=== PATIENT | male | born 1970 | race Two or more races ===

== ENCOUNTER → 2019-11-25 | Outpatient (CLI) | payer OTHER | END | disposition home or self-care (01) | LOC: PUC 12:51 | DX: Z02.1 Encounter for pre-employment examination (principal) | CPT/HCPCS: 86706; 86735; 86762; 86765; 86787 ==

== ENCOUNTER → 2020-04-21 | Outpatient (CLI) | payer OTHER ==
[2020-04-21 12:35] LABS: BASOPHILS % (AUTO) 0.8 % (0.0-2.0); EOSINOPHILS % (AUTO) 2.6 % (1.0-6.0); HEMATOCRIT 44.9 % (41-53); HEMOGLOBIN 15.7 g/dL (13.5-17.5); LYMPHOCYTES # (AUTO) 2.5 K/uL (1.0-4.8); LYMPHOCYTES % (AUTO) 28.7 % (22.0-44.0); MEAN CORPUSCULAR HEMOGLOBIN 31.8 pg (26.0-34.0); MEAN CORPUSCULAR HGB CONC 35.1 G/dL (31.0-37.0); MEAN CORPUSCULAR VOLUME 91 fL (80-100); MONOCYTES # (AUTO) 0.6 K/uL (0.1-1.0); MONOCYTES % (AUTO) 6.7 % (2.0-9.0); NEUTROPHILS # (AUTO) 5.3 K/uL (1.8-7.7); NEUTROPHILS % (AUTO) 61.2 % (40.0-70.0); PLATELET COUNT (AUTO) 172 K/uL (150-450); RED BLOOD CELL COUNT(AUTO) 4.95 MIL/uL (4.50-5.90); RED CELL DISTRIBUTION WIDTH 13.6 % (11.5-14.5)
[2020-04-21 13:01] LABS: ALANINE AMINOTRANSFERASE 44 U/L (12-78); ALBUMIN 3.9 g/dL (3.4-5.0); ALKALINE PHOSPHATASE 60 U/L (46-116); ANION GAP 8 mmol/L (8-16); ASPARTATE AMINOTRANSFERASE 25 U/L (15-37); BILIRUBIN,TOTAL 0.7 mg/dL (0.1-1.0); CARBON DIOXIDE 27 mmol/L (22-29); CHLORIDE 105 mmol/L (98-107); CHOL/HDL RATIO 6.5 (4.2-7.3); CHOLESTEROL 260 mg/dL (131-200); CREATININE 1.19 mg/dL (0.60-1.30); GLOMERULAR FILTR. RATE CALC > 60 mL/min (>60); GLUCOSE,RANDOM 104 mg/dL (70-110); HDL CHOLESTEROL 40 mg/dL (40-60); LDL CHOL (CALC.) 180 mg/dL (0-130); POTASSIUM 4.2 mmol/L (3.5-5.1); SODIUM SERUM 140 mmol/L (136-145); THYROID STIMULATING HORMONE 0.58 uIU/mL (0.36-3.74); TOTAL PROTEIN, SERUM 7.4 g/dL (6.4-8.2); TRIGLYCERIDES 200 mg/dL (15-150); UREA NITROGEN, BLOOD 10 mg/dL (7-18)
[2020-04-21 13:19] LABS: PROSTATE SPECIFIC ANTIGEN 2.24 ng/mL (0.00-4.00)
[2020-04-21 13:44] LABS: HEMOGLOBIN A1C 5.5 % (3.8-5.6)
== END | disposition home or self-care (01) ==
LOC: LABPV 10:15
PROVIDERS: ATTEND Nurse Practitioner
DX: Z00.00 Encounter for general adult medical examination without abnormal findings (principal); E11.9 Type 2 diabetes mellitus without complications; R53.83 Other fatigue; R30.0 Dysuria
CPT/HCPCS: 82043; 82570; 83036; 84153; 84439; 84443; 84481

== ENCOUNTER → 2020-07-29 | Outpatient (CLI) | payer OTHER ==
[2020-07-29 09:03] LABS: BASOPHILS % (AUTO) 0.7 % (0.0-2.0); EOSINOPHILS % (AUTO) 2.5 % (1.0-6.0); HEMOGLOBIN 15.6 g/dL (13.5-17.5); LYMPHOCYTES # (AUTO) 2.1 K/uL (1.0-4.8); LYMPHOCYTES % (AUTO) 22.8 % (22.0-44.0); MEAN CORPUSCULAR HEMOGLOBIN 30.8 pg (26.0-34.0); MEAN CORPUSCULAR HGB CONC 33.2 G/dL (31.0-37.0); MEAN CORPUSCULAR VOLUME 93 fL (80-100); MONOCYTES # (AUTO) 0.6 K/uL (0.1-1.0); MONOCYTES % (AUTO) 6.8 % (2.0-9.0); NEUTROPHILS # (AUTO) 6.1 K/uL (1.8-7.7); NEUTROPHILS % (AUTO) 67.2 % (40.0-70.0); PLATELET COUNT (AUTO) 187 K/uL (150-450); RED BLOOD CELL COUNT(AUTO) 5.07 MIL/uL (4.50-5.90); RED CELL DISTRIBUTION WIDTH 13.3 % (11.5-14.5)
[2020-07-29 09:13] LABS: HEMOGLOBIN A1C 5.7 % (3.8-5.6)
[2020-07-29 09:32] LABS: ALANINE AMINOTRANSFERASE 40 U/L (12-78); ALBUMIN 3.8 g/dL (3.4-5.0); ALKALINE PHOSPHATASE 80 U/L (46-116); ANION GAP 8 mmol/L (8-16); ASPARTATE AMINOTRANSFERASE 20 U/L (15-37); BILIRUBIN,TOTAL 0.7 mg/dL (0.1-1.0); CALCIUM, TOTAL 8.9 mg/dL (8.8-10.5); CARBON DIOXIDE 29 mmol/L (22-29); CHLORIDE 107 mmol/L (98-107); CHOL/HDL RATIO 3.5 (4.2-7.3); CHOLESTEROL 146 mg/dL (131-200); CREATININE 1.07 mg/dL (0.60-1.30); GLOMERULAR FILTR. RATE CALC > 60 mL/min (>60); GLUCOSE,RANDOM 124 mg/dL (70-110); HDL CHOLESTEROL 42 mg/dL (40-60); LDL CHOL (CALC.) 78 mg/dL (0-130); POTASSIUM 4.1 mmol/L (3.5-5.1); SODIUM SERUM 144 mmol/L (136-145); TOTAL PROTEIN, SERUM 7.4 g/dL (6.4-8.2); TRIGLYCERIDES 131 mg/dL (15-150); UREA NITROGEN, BLOOD 13 mg/dL (7-18)
== END | disposition home or self-care (01) ==
LOC: LABPV 07:36
PROVIDERS: ATTEND Nurse Practitioner
DX: I10 Essential (primary) hypertension (principal); E11.69 Type 2 diabetes mellitus with other specified complication
CPT/HCPCS: 82043; 82570; 83036

== ENCOUNTER → 2021-01-25 | Outpatient (CLI) | payer OTHER ==
[2021-01-25 11:41] LABS: EOSINOPHILS % (AUTO) 4.1 % (1.0-6.0); HEMOGLOBIN 15.5 g/dL (13.5-17.5); LYMPHOCYTES # (AUTO) 2.1 K/uL (1.0-4.8); MEAN CORPUSCULAR HEMOGLOBIN 31.2 pg (26.0-34.0); MEAN CORPUSCULAR HGB CONC 33.6 G/dL (31.0-37.0); MEAN CORPUSCULAR VOLUME 93 fL (80-100); MONOCYTES # (AUTO) 0.6 K/uL (0.1-1.0); MONOCYTES % (AUTO) 8.3 % (2.0-9.0); NEUTROPHILS # (AUTO) 4.3 K/uL (1.8-7.7); NEUTROPHILS % (AUTO) 57.6 % (40.0-70.0); PLATELET COUNT (AUTO) 158 K/uL (150-450); RED BLOOD CELL COUNT(AUTO) 4.95 MIL/uL (4.50-5.90); RED CELL DISTRIBUTION WIDTH 13.8 % (11.5-14.5)
[2021-01-25 12:20] LABS: ALANINE AMINOTRANSFERASE 47 U/L (12-78); ALBUMIN 3.9 g/dL (3.4-5.0); ALKALINE PHOSPHATASE 76 U/L (46-116); ANION GAP 10 mmol/L (8-16); ASPARTATE AMINOTRANSFERASE 24 U/L (15-37); BILIRUBIN,TOTAL 0.6 mg/dL (0.1-1.0); CALCIUM, TOTAL 8.9 mg/dL (8.8-10.5); CARBON DIOXIDE 26 mmol/L (22-29); CHLORIDE 110 mmol/L (98-107); CHOL/HDL RATIO 3.6 (4.2-7.3); CHOLESTEROL 138 mg/dL (131-200); CREATININE 1.19 mg/dL (0.60-1.30); GLOMERULAR FILTR. RATE CALC > 60 mL/min (>60); GLUCOSE,RANDOM 129 mg/dL (70-110); HDL CHOLESTEROL 38 mg/dL (40-60); LDL CHOL (CALC.) 83 mg/dL (0-130); POTASSIUM 4.1 mmol/L (3.5-5.1); SODIUM SERUM 146 mmol/L (136-145); TOTAL PROTEIN, SERUM 7.2 g/dL (6.4-8.2); TRIGLYCERIDES 83 mg/dL (15-150); UREA NITROGEN, BLOOD 16 mg/dL (7-18)
== END | disposition home or self-care (01) ==
LOC: LABPV 07:39
PROVIDERS: ATTEND Nurse Practitioner
DX: I10 Essential (primary) hypertension (principal); E11.69 Type 2 diabetes mellitus with other specified complication
CPT/HCPCS: 80053; 80061; 82043; 82570; 83036; 85025

== ENCOUNTER → 2021-07-12 | Outpatient (CLI) | payer OTHER ==
[~2021-07-12] VITALS: Ht 182.9 cm; Wt 110.0 kg
[~2021-07-12] MED LIST: ATOR10TA84 PO; CETI-450 PO; FLUT16H NASAL; PNEUMOCOCCAL VACCINE POLYVALENT 0.5 ML VIAL [PPSV23] IM. ONE; TAMS-13 PO
[2021-07-12 10:44] VITALS: BP 135/87
== END | disposition home or self-care (01) ==
LOC: SRCNTR 10:18
PROVIDERS: ATTEND Internal Medicine
DX: Z23 Encounter for immunization (principal); E78.5 Hyperlipidemia, unspecified; R97.20 Elevated prostate specific antigen [PSA]; I10 Essential (primary) hypertension; E11.9 Type 2 diabetes mellitus without complications
CPT/HCPCS: 90471; 90732; G0463; 96372

== ENCOUNTER → 2021-07-13 | Outpatient (CLI) | payer OTHER ==
[~2021-07-13] MED LIST changes: -PNEUMOCOCCAL VACCINE POLYVALENT 0.5 ML VIAL [PPSV23] IM. ONE
[2021-07-13 12:12] LABS: BASOPHILS % (AUTO) 0.6 % (0.0-2.0); EOSINOPHILS % (AUTO) 1.9 % (1.0-6.0); HEMATOCRIT 46.8 % (41-53); HEMOGLOBIN 15.8 g/dL (13.5-17.5); LYMPHOCYTES # (AUTO) 2.3 K/uL (1.0-4.8); LYMPHOCYTES % (AUTO) 22.7 % (22.0-44.0); MEAN CORPUSCULAR HEMOGLOBIN 30.9 pg (26.0-34.0); MEAN CORPUSCULAR HGB CONC 33.8 G/dL (31.0-37.0); MEAN CORPUSCULAR VOLUME 91 fL (80-100); MONOCYTES # (AUTO) 0.7 K/uL (0.1-1.0); MONOCYTES % (AUTO) 7.3 % (2.0-9.0); NEUTROPHILS # (AUTO) 6.7 K/uL (1.8-7.7); NEUTROPHILS % (AUTO) 67.5 % (40.0-70.0); PLATELET COUNT (AUTO) 172 K/uL (150-450); RED BLOOD CELL COUNT(AUTO) 5.13 MIL/uL (4.50-5.90); RED CELL DISTRIBUTION WIDTH 13.7 % (11.5-14.5)
[2021-07-13 12:28] LABS: HEMOGLOBIN A1C 6.4 % (3.8-5.6)
[2021-07-13 12:37] LABS: ALANINE AMINOTRANSFERASE 36 U/L (12-78); ALBUMIN 3.8 g/dL (3.4-5.0); ALKALINE PHOSPHATASE 74 U/L (46-116); ANION GAP 10 mmol/L (8-16); ASPARTATE AMINOTRANSFERASE 18 U/L (15-37); BILIRUBIN,TOTAL 0.6 mg/dL (0.1-1.0); CARBON DIOXIDE 26 mmol/L (22-29); CHLORIDE 107 mmol/L (98-107); CHOL/HDL RATIO 5.8 (4.2-7.3); CHOLESTEROL 242 mg/dL (131-200); CREATININE 0.94 mg/dL (0.60-1.30); GLOMERULAR FILTR. RATE CALC > 60 mL/min (>60); GLUCOSE,RANDOM 119 mg/dL (70-110); HDL CHOLESTEROL 42 mg/dL (40-60); LDL CHOL (CALC.) 168 mg/dL (0-130); POTASSIUM 4.3 mmol/L (3.5-5.1); SODIUM SERUM 143 mmol/L (136-145); THYROID STIMULATING HORMONE 0.57 uIU/mL (0.36-3.74); TOTAL PROTEIN, SERUM 7.4 g/dL (6.4-8.2); TRIGLYCERIDES 162 mg/dL (15-150); UREA NITROGEN, BLOOD 13 mg/dL (7-18)
[2021-07-13 12:49] LABS: PROSTATE SPECIFIC ANTIGEN 1.56 ng/mL (0.00-4.00)
== END | disposition home or self-care (01) ==
LOC: LABPV 10:03
PROVIDERS: ATTEND Internal Medicine
DX: Z13.228 Encounter for screening for other metabolic disorders (principal); I10 Essential (primary) hypertension; E78.5 Hyperlipidemia, unspecified; E11.9 Type 2 diabetes mellitus without complications; E83.32 Hereditary vitamin D-dependent rickets (type 1) (type 2); R94.6 Abnormal results of thyroid function studies; R68.89 Other general symptoms and signs; R97.20 Elevated prostate specific antigen [PSA]
CPT/HCPCS: 80053; 80061; 82043; 82306; 82570; 83036; 84153; 84443; 85025

== ENCOUNTER → 2021-10-11 | Outpatient (CLI) | payer OTHER ==
[2021-10-11 12:27] LABS: BASOPHILS % (AUTO) 0.9 % (0.0-2.0); EOSINOPHILS % (AUTO) 2.4 % (1.0-6.0); HEMOGLOBIN 15.5 g/dL (13.5-17.5); LYMPHOCYTES # (AUTO) 2.6 K/uL (1.0-4.8); LYMPHOCYTES % (AUTO) 28.6 % (22.0-44.0); MEAN CORPUSCULAR HEMOGLOBIN 30.8 pg (26.0-34.0); MEAN CORPUSCULAR HGB CONC 34.5 G/dL (31.0-37.0); MEAN CORPUSCULAR VOLUME 89 fL (80-100); MONOCYTES # (AUTO) 0.5 K/uL (0.1-1.0); MONOCYTES % (AUTO) 5.5 % (2.0-9.0); NEUTROPHILS # (AUTO) 5.6 K/uL (1.8-7.7); NEUTROPHILS % (AUTO) 62.6 % (40.0-70.0); PLATELET COUNT (AUTO) 176 K/uL (150-450); RED BLOOD CELL COUNT(AUTO) 5.05 MIL/uL (4.50-5.90); RED CELL DISTRIBUTION WIDTH 13.9 % (11.5-14.5)
[2021-10-11 12:31] LABS: HEMOGLOBIN A1C 6.1 % (3.8-5.6)
[2021-10-11 12:35] LABS: APPEARANCE,URINE CLEAR (CLEAR); BILIRUBIN,URINE NEGATIVE (NEGATIVE); GLUCOSE, URINE (UA) NEGATIVE (NEGATIVE); KETONES,URINE NEGATIVE (NEGATIVE); LEUKOCYTE ESTERASE ,URINE NEGATIVE (NEGATIVE); NITRATE,URINE NEGATIVE (NEGATIVE); OCCULT BLOOD,URINE NEGATIVE (NEGATIVE); PROTEIN,URINE NEGATIVE (NEGATIVE)
[2021-10-11 12:40] LABS: ALANINE AMINOTRANSFERASE 34 U/L (12-78); ALBUMIN 3.7 g/dL (3.4-5.0); ALKALINE PHOSPHATASE 76 U/L (46-116); ANION GAP 11 mmol/L (8-16); ASPARTATE AMINOTRANSFERASE 20 U/L (15-37); BILIRUBIN,TOTAL 0.7 mg/dL (0.1-1.0); CARBON DIOXIDE 25 mmol/L (22-29); CHLORIDE 106 mmol/L (98-107); CHOL/HDL RATIO 4.6 (4.2-7.3); CHOLESTEROL 184 mg/dL (131-200); CREATININE 0.99 mg/dL (0.60-1.30); GLOMERULAR FILTR. RATE CALC > 60 mL/min (>60); GLUCOSE,RANDOM 105 mg/dL (70-110); HDL CHOLESTEROL 40 mg/dL (40-60); LDL CHOL (CALC.) 116 mg/dL (0-130); POTASSIUM 3.9 mmol/L (3.5-5.1); SODIUM SERUM 142 mmol/L (136-145); THYROID STIMULATING HORMONE 0.73 uIU/mL (0.36-3.74); TOTAL PROTEIN, SERUM 7.2 g/dL (6.4-8.2); TRIGLYCERIDES 139 mg/dL (15-150); UREA NITROGEN, BLOOD 10 mg/dL (7-18)
[2021-10-11 12:45] LABS: BACTERIA,URINE None Seen /HPF (None Seen); RBC,URINE None Seen /HPF (0-2); WBC,URINE None Seen /HPF (0-5)
[2021-10-11 13:08] LABS: PROSTATE SPECIFIC ANTIGEN 2.36 ng/mL (0.00-4.00)
== END | disposition home or self-care (01) ==
LOC: LABPV 10:14
PROVIDERS: ATTEND Internal Medicine
DX: Z13.228 Encounter for screening for other metabolic disorders (principal); Z13.220 Encounter for screening for lipoid disorders; I10 Essential (primary) hypertension; E78.5 Hyperlipidemia, unspecified; R68.89 Other general symptoms and signs; R73.09 Other abnormal glucose; R97.20 Elevated prostate specific antigen [PSA]; R94.6 Abnormal results of thyroid function studies; R82.90 Unspecified abnormal findings in urine; E83.32 Hereditary vitamin D-dependent rickets (type 1) (type 2)
CPT/HCPCS: 80053; 80061; 81001; 82306; 83036; 84153; 84443; 85025

== ENCOUNTER → 2021-10-13 | Outpatient (CLI) | payer OTHER ==
[~2021-10-13] VITALS: Ht 182.9 cm; Wt 111.8 kg
[2021-10-13 10:12] VITALS: BP 122/83
== END | disposition home or self-care (01) ==
LOC: SRCNTR 09:51
PROVIDERS: ATTEND Internal Medicine
DX: I10 Essential (primary) hypertension (principal); E11.9 Type 2 diabetes mellitus without complications; E78.2 Mixed hyperlipidemia; J30.9 Allergic rhinitis, unspecified; E66.01 Morbid (severe) obesity due to excess calories; F17.200 Nicotine dependence, unspecified, uncomplicated; E55.9 Vitamin D deficiency, unspecified; Z79.899 Other long term (current) drug therapy; E66.2 Morbid (severe) obesity with alveolar hypoventilation
CPT/HCPCS: G0463

== ENCOUNTER → 2022-05-12 | Outpatient (CLI) | payer OTHER ==
[2022-05-12 10:22] LABS: BASOPHILS % (AUTO) 0.9 % (0.0-2.0); EOSINOPHILS % (AUTO) 2.3 % (1.0-6.0); HEMATOCRIT 46.4 % (41-53); HEMOGLOBIN 15.8 g/dL (13.5-17.5); LYMPHOCYTES # (AUTO) 2.6 K/uL (1.0-4.8); LYMPHOCYTES % (AUTO) 33.5 % (22.0-44.0); MEAN CORPUSCULAR HEMOGLOBIN 30.8 pg (26.0-34.0); MEAN CORPUSCULAR HGB CONC 33.9 G/dL (31.0-37.0); MEAN CORPUSCULAR VOLUME 91 fL (80-100); MONOCYTES # (AUTO) 0.5 K/uL (0.1-1.0); MONOCYTES % (AUTO) 6.8 % (2.0-9.0); NEUTROPHILS # (AUTO) 4.4 K/uL (1.8-7.7); NEUTROPHILS % (AUTO) 56.5 % (40.0-70.0); PLATELET COUNT (AUTO) 173 K/uL (150-450); RED BLOOD CELL COUNT(AUTO) 5.11 MIL/uL (4.50-5.90); RED CELL DISTRIBUTION WIDTH 13.6 % (11.5-14.5)
[2022-05-12 10:24] LABS: APPEARANCE,URINE CLEAR (CLEAR); BILIRUBIN,URINE NEGATIVE (NEGATIVE); GLUCOSE, URINE (UA) NEGATIVE (NEGATIVE); KETONES,URINE NEGATIVE (NEGATIVE); LEUKOCYTE ESTERASE ,URINE TRACE (NEGATIVE); NITRATE,URINE NEGATIVE (NEGATIVE); OCCULT BLOOD,URINE NEGATIVE (NEGATIVE); PROTEIN,URINE TRACE mg/dL (NEGATIVE); SPECIFIC GRAVITIY, URINE 1.026 (1.003-1.030)
[2022-05-12 10:34] LABS: HEMOGLOBIN A1C 5.8 % (3.8-5.6)
[2022-05-12 10:41] LABS: BACTERIA,URINE None Seen /HPF (None Seen); RBC,URINE None Seen /HPF (0-2); SQUAMOUS EPITHELIAL CELL,UR Few /LPF (None Seen); WBC,URINE 0-2 /HPF (0-5)
[2022-05-12 10:49] LABS: ALANINE AMINOTRANSFERASE 43 U/L (12-78); ALBUMIN 3.6 g/dL (3.4-5.0); ALKALINE PHOSPHATASE 82 U/L (46-116); ANION GAP 4 mmol/L (8-16); ASPARTATE AMINOTRANSFERASE 22 U/L (15-37); BILIRUBIN,TOTAL 0.6 mg/dL (0.1-1.0); CARBON DIOXIDE 31 mmol/L (22-29); CHLORIDE 107 mmol/L (98-107); CHOL/HDL RATIO 4.7 (4.2-7.3); CHOLESTEROL 189 mg/dL (131-200); CREATININE 1.01 mg/dL (0.60-1.30); GLUCOSE,RANDOM 101 mg/dL (70-110); HDL CHOLESTEROL 40 mg/dL (40-60); LDL CHOL (CALC.) 122 mg/dL (0-130); POTASSIUM 4.2 mmol/L (3.5-5.1); SODIUM SERUM 142 mmol/L (136-145); THYROID STIMULATING HORMONE 0.53 uIU/mL (0.36-3.74); TOTAL PROTEIN, SERUM 7.1 g/dL (6.4-8.2); TRIGLYCERIDES 134 mg/dL (15-150); UREA NITROGEN, BLOOD 16 mg/dL (7-18)
[2022-05-12 10:50] LABS: GLOMERULAR FILTR. RATE CALC > 60 mL/min (>60)
[2022-05-13 01:07] LABS: TESTOSTERONE TOTAL 295 ng/dL (264-916)
== END | disposition home or self-care (01) ==
LOC: LABMN 10:04
PROVIDERS: ATTEND Internal Medicine
DX: Z01.89 Encounter for other specified special examinations (principal)
CPT/HCPCS: 80053; 80061; 81001; 83036; 84402; 84403; 84443; 85025

== ENCOUNTER → 2022-06-27 | Outpatient (CLI) | payer OTHER ==
[~2022-06-27] VITALS: Ht 182.9 cm; Wt 107.5 kg
[~2022-06-27] MED LIST changes: +ATOR10TA PO; -ATOR10TA84 PO; +CALC-1275 PO; -FLUT16H NASAL; +FLUT16SP NASAL
[2022-06-27 10:08] VITALS: BP 158/78
== END | disposition home or self-care (01) ==
LOC: SRCNTR 09:46
PROVIDERS: ATTEND Internal Medicine
DX: I10 Essential (primary) hypertension (principal); Z09 Encounter for follow-up examination after completed treatment for conditions other than malignant neoplasm; E11.9 Type 2 diabetes mellitus without complications; E78.5 Hyperlipidemia, unspecified; J30.9 Allergic rhinitis, unspecified; E66.9 Obesity, unspecified; E55.9 Vitamin D deficiency, unspecified
CPT/HCPCS: G0463; Z7500

== ENCOUNTER → 2022-10-31 | Outpatient (CLI) | payer OTHER ==
[~2022-10-31] MED LIST changes: +CIPR250T6 PO
[2022-10-31 10:47] LABS: BASOPHILS % (AUTO) 1.1 % (0.0-2.0); EOSINOPHILS % (AUTO) 3.1 % (1.0-6.0); HEMATOCRIT 47.2 % (41-53); HEMOGLOBIN 15.8 g/dL (13.5-17.5); LYMPHOCYTES # (AUTO) 2.6 K/uL (1.0-4.8); LYMPHOCYTES % (AUTO) 26.8 % (22.0-44.0); MEAN CORPUSCULAR HEMOGLOBIN 30.6 pg (26.0-34.0); MEAN CORPUSCULAR HGB CONC 33.4 G/dL (31.0-37.0); MEAN CORPUSCULAR VOLUME 92 fL (80-100); MONOCYTES # (AUTO) 0.6 K/uL (0.1-1.0); NEUTROPHILS # (AUTO) 6.1 K/uL (1.8-7.7); PLATELET COUNT (AUTO) 168 K/uL (150-450); RED BLOOD CELL COUNT(AUTO) 5.16 MIL/uL (4.50-5.90); RED CELL DISTRIBUTION WIDTH 13.4 % (11.5-14.5)
[2022-10-31 10:54] LABS: HEMOGLOBIN A1C 6.4 % (3.8-5.6)
[2022-10-31 10:54] LABS: APPEARANCE,URINE CLEAR (CLEAR); BILIRUBIN,URINE NEGATIVE (NEGATIVE); GLUCOSE, URINE (UA) NEGATIVE (NEGATIVE); KETONES,URINE NEGATIVE (NEGATIVE); LEUKOCYTE ESTERASE ,URINE SMALL (NEGATIVE); NITRATE,URINE NEGATIVE (NEGATIVE); OCCULT BLOOD,URINE NEGATIVE (NEGATIVE); PROTEIN,URINE TRACE mg/dL (NEGATIVE); SPECIFIC GRAVITIY, URINE 1.026 (1.003-1.030); UROBILINOGEN,URINE <=1.0 mg/dL (<=1.0)
[2022-10-31 11:14] LABS: ALANINE AMINOTRANSFERASE 35 U/L (12-78); ALBUMIN 3.8 g/dL (3.4-5.0); ALKALINE PHOSPHATASE 82 U/L (46-116); ANION GAP 9 mmol/L (8-16); ASPARTATE AMINOTRANSFERASE 21 U/L (15-37); BILIRUBIN,TOTAL 0.7 mg/dL (0.1-1.0); CALCIUM, TOTAL 9.3 mg/dL (8.8-10.5); CARBON DIOXIDE 28 mmol/L (22-29); CHLORIDE 107 mmol/L (98-107); CHOL/HDL RATIO 3.4 (4.2-7.3); CHOLESTEROL 157 mg/dL (131-200); CREATININE 1.02 mg/dL (0.60-1.30); GLOMERULAR FILTR. RATE CALC > 60 mL/min (>60); GLUCOSE,RANDOM 122 mg/dL (70-110); HDL CHOLESTEROL 46 mg/dL (40-60); LDL CHOL (CALC.) 87 mg/dL (0-130); POTASSIUM 3.9 mmol/L (3.5-5.1); SODIUM SERUM 144 mmol/L (136-145); TOTAL PROTEIN, SERUM 7.3 g/dL (6.4-8.2); TRIGLYCERIDES 122 mg/dL (15-150); UREA NITROGEN, BLOOD 13 mg/dL (7-18)
[2022-10-31 11:30] LABS: RBC,URINE None Seen /HPF (0-2)
[2022-10-31 11:32] LABS: BACTERIA,URINE None Seen /HPF (None Seen); SQUAMOUS EPITHELIAL CELL,UR Few /LPF (None Seen)
== END | disposition home or self-care (01) ==
LOC: LABMN 10:15
PROVIDERS: ATTEND Internal Medicine
DX: Z01.89 Encounter for other specified special examinations (principal)
CPT/HCPCS: 80053; 80061; 81001; 83036; 84403; 84443; 85025; 87086; 87186

== ENCOUNTER → 2022-10-31 | Outpatient (CLI) | payer OTHER ==
[~2022-10-31] VITALS: Ht 182.9 cm; Wt 110.0 kg
[2022-10-31 11:29] VITALS: BP 109/86
== END | disposition home or self-care (01) ==
LOC: SRCNTR 11:06
PROVIDERS: ATTEND Internal Medicine
DX: I10 Essential (primary) hypertension (principal); E78.5 Hyperlipidemia, unspecified
CPT/HCPCS: G0463

== ENCOUNTER → 2023-06-05 | Outpatient (CLI) | payer OTHER ==
[~2023-06-05] MED LIST changes: +CEPH-558 PO; -TAMS-13 PO; +TAMS0.4C34 PO
[2023-06-05 08:41] LABS: APPEARANCE,URINE CLEAR (CLEAR); BILIRUBIN,URINE NEGATIVE (NEGATIVE); COLOR,URINE YELLOW (YELLOW); GLUCOSE, URINE (UA) NEGATIVE (NEGATIVE); KETONES,URINE NEGATIVE (NEGATIVE); LEUKOCYTE ESTERASE ,URINE SMALL (NEGATIVE); NITRATE,URINE NEGATIVE (NEGATIVE); OCCULT BLOOD,URINE NEGATIVE (NEGATIVE); PH,URINE 5.5 (5.0-8.0); PROTEIN,URINE NEGATIVE (NEGATIVE); SPECIFIC GRAVITIY, URINE 1.022 (1.003-1.030); UROBILINOGEN,URINE <=1.0 mg/dL (<=1.0)
[2023-06-05 08:41] LABS: HEMOGLOBIN 15.8 g/dL (13.5-17.5); LYMPHOCYTES # (AUTO) 2.9 K/uL (1.0-4.8); LYMPHOCYTES % (AUTO) 30.2 % (22.0-44.0); MEAN CORPUSCULAR HEMOGLOBIN 31.5 pg (26.0-34.0); MEAN CORPUSCULAR HGB CONC 33.5 G/dL (31.0-37.0); MEAN CORPUSCULAR VOLUME 94 fL (80-100); MONOCYTES # (AUTO) 0.7 K/uL (0.1-1.0); NEUTROPHILS # (AUTO) 5.7 K/uL (1.8-7.7); NEUTROPHILS % (AUTO) 59.8 % (40.0-70.0); PLATELET COUNT (AUTO) 155 K/uL (150-450); RED BLOOD CELL COUNT(AUTO) 5.02 MIL/uL (4.50-5.90); RED CELL DISTRIBUTION WIDTH 13.7 % (11.5-14.5); WHITE BLOOD COUNT (AUTO) 9.6 K/uL (4.5-11.0)
[2023-06-05 08:56] LABS: BACTERIA,URINE Few /HPF (None Seen); RBC,URINE None Seen /HPF (0-2); SQUAMOUS EPITHELIAL CELL,UR Few /LPF (None Seen)
[2023-06-05 09:02] LABS: HEMOGLOBIN A1C 5.6 % (3.8-5.6)
[2023-06-05 09:10] LABS: ALANINE AMINOTRANSFERASE 25 U/L (12-78); ALBUMIN 3.4 g/dL (3.4-5.0); ALKALINE PHOSPHATASE 78 U/L (46-116); ANION GAP 5 mmol/L (8-16); ASPARTATE AMINOTRANSFERASE 15 U/L (15-37); BILIRUBIN,TOTAL 0.9 mg/dL (0.1-1.0); CALCIUM, TOTAL 8.9 mg/dL (8.8-10.5); CARBON DIOXIDE 29 mmol/L (22-29); CHLORIDE 107 mmol/L (98-107); CHOL/HDL RATIO 4.1 (4.2-7.3); CHOLESTEROL 175 mg/dL (131-200); CREATININE 1.07 mg/dL (0.60-1.30); GLOMERULAR FILTR. RATE CALC > 60 mL/min (>60); GLUCOSE,RANDOM 105 mg/dL (70-110); HDL CHOLESTEROL 43 mg/dL (40-60); LDL CHOL (CALC.) 106 mg/dL (0-130); POTASSIUM 3.9 mmol/L (3.5-5.1); SODIUM SERUM 141 mmol/L (136-145); THYROID STIMULATING HORMONE 1.91 uIU/mL (0.36-3.74); TOTAL PROTEIN, SERUM 6.7 g/dL (6.4-8.2); TRIGLYCERIDES 132 mg/dL (15-150); UREA NITROGEN, BLOOD 8 mg/dL (7-18)
[2023-06-05 09:16] LABS: PROSTATE SPECIFIC ANTIGEN 2.03 ng/mL (0.00-4.00)
== END | disposition home or self-care (01) ==
LOC: LABMN 08:08
PROVIDERS: ATTEND Internal Medicine
DX: I10 Essential (primary) hypertension (principal); E78.5 Hyperlipidemia, unspecified
CPT/HCPCS: 80053; 80061; 81001; 82306; 83036; 84153; 84443; 85025; 87086; 87186

== ENCOUNTER → 2023-06-07 | Outpatient (CLI) | payer OTHER ==
[~2023-06-07] VITALS: Ht 182.9 cm; Wt 103.0 kg
[~2023-06-07] MED LIST changes: -TAMS0.4C34 PO; +TAMS0.4C94 PO
[2023-06-07 11:37] VITALS: BP 142/97; PULSE 83; RESP 16; TEMP 98.5; O2SAT 95
== END | disposition home or self-care (01) ==
LOC: SRCNTR 11:11
PROVIDERS: ATTEND Internal Medicine
DX: I10 Essential (primary) hypertension (principal); E11.9 Type 2 diabetes mellitus without complications; E78.5 Hyperlipidemia, unspecified; N39.0 Urinary tract infection, site not specified; N40.0 Benign prostatic hyperplasia without lower urinary tract symptoms; E55.9 Vitamin D deficiency, unspecified; J30.9 Allergic rhinitis, unspecified; Z72.0 Tobacco use; Z79.899 Other long term (current) drug therapy
CPT/HCPCS: G0463

== ENCOUNTER → 2023-12-01 | Outpatient (CLI) | payer OTHER ==
[~2023-12-01] MED LIST changes: +DICL100G60 TP; +NICO-803 TD
[2023-12-01 08:58] LABS: BASOPHILS % (AUTO) 1.1 % (0.0-2.0); EOSINOPHILS % (AUTO) 1.8 % (1.0-6.0); HEMOGLOBIN 15.6 g/dL (13.5-17.5); LYMPHOCYTES # (AUTO) 2.6 K/uL (1.0-4.8); LYMPHOCYTES % (AUTO) 23.1 % (22.0-44.0); MEAN CORPUSCULAR HEMOGLOBIN 31.4 pg (26.0-34.0); MEAN CORPUSCULAR VOLUME 92 fL (80-100); MONOCYTES # (AUTO) 0.8 K/uL (0.1-1.0); NEUTROPHILS # (AUTO) 7.6 K/uL (1.8-7.7); PLATELET COUNT (AUTO) 164 K/uL (150-450); RED BLOOD CELL COUNT(AUTO) 4.98 MIL/uL (4.50-5.90); RED CELL DISTRIBUTION WIDTH 13.7 % (11.5-14.5); WHITE BLOOD COUNT (AUTO) 11.4 K/uL (4.5-11.0)
[2023-12-01 09:09] LABS: HEMOGLOBIN A1C 5.6 % (3.8-5.6)
[2023-12-01 09:26] LABS: ALANINE AMINOTRANSFERASE 27 U/L (12-78); ALBUMIN 3.4 g/dL (3.4-5.0); ALKALINE PHOSPHATASE 75 U/L (46-116); ANION GAP 10 mmol/L (8-16); ASPARTATE AMINOTRANSFERASE 18 U/L (15-37); BILIRUBIN,TOTAL 0.7 mg/dL (0.1-1.0); CALCIUM, TOTAL 8.7 mg/dL (8.8-10.5); CARBON DIOXIDE 27 mmol/L (22-29); CHLORIDE 106 mmol/L (98-107); CHOL/HDL RATIO 4.1 (4.2-7.3); CHOLESTEROL 193 mg/dL (131-200); CREATININE 0.98 mg/dL (0.60-1.30); GLOMERULAR FILTR. RATE CALC > 60 mL/min (>60); GLUCOSE,RANDOM 100 mg/dL (70-110); HDL CHOLESTEROL 47 mg/dL (40-60); LDL CHOL (CALC.) 122 mg/dL (0-130); POTASSIUM 3.9 mmol/L (3.5-5.1); SODIUM SERUM 143 mmol/L (136-145); THYROID STIMULATING HORMONE 1.39 uIU/mL (0.36-3.74); TRIGLYCERIDES 120 mg/dL (15-150); UREA NITROGEN, BLOOD 9 mg/dL (7-18)
[2023-12-01 09:38] LABS: PROSTATE SPECIFIC ANTIGEN 2.18 ng/mL (0.00-4.00)
[2023-12-01 09:44] LABS: APPEARANCE,URINE CLEAR (CLEAR); BILIRUBIN,URINE NEGATIVE (NEGATIVE); COLOR,URINE YELLOW (YELLOW); GLUCOSE, URINE (UA) NEGATIVE (NEGATIVE); KETONES,URINE NEGATIVE (NEGATIVE); LEUKOCYTE ESTERASE ,URINE TRACE (NEGATIVE); NITRATE,URINE NEGATIVE (NEGATIVE); OCCULT BLOOD,URINE NEGATIVE (NEGATIVE); PH,URINE 5.5 (5.0-8.0); PROTEIN,URINE NEGATIVE (NEGATIVE); SPECIFIC GRAVITIY, URINE 1.014 (1.003-1.030); UROBILINOGEN,URINE <=1.0 mg/dL (<=1.0)
[2023-12-01 10:07] LABS: BACTERIA,URINE None Seen /HPF (None Seen); RBC,URINE None Seen /HPF (0-2); WBC,URINE 0-2 /HPF (0-5)
== END | disposition home or self-care (01) ==
LOC: LABMN 08:00
PROVIDERS: ATTEND Internal Medicine
DX: I10 Essential (primary) hypertension (principal); E78.5 Hyperlipidemia, unspecified
CPT/HCPCS: 80053; 80061; 81001; 82306; 83036; 84153; 84443; 85025

== ENCOUNTER → 2023-12-06 | Outpatient (CLI) | payer OTHER ==
[~2023-12-06] VITALS: Ht 182.9 cm; Wt 103.0 kg
[2023-12-06 09:55] VITALS: BP 141/99; PULSE 86; RESP 20; TEMP 99.1; O2SAT 96
== END | disposition home or self-care (01) ==
LOC: SRCNTR 09:40
PROVIDERS: ATTEND Internal Medicine
DX: I10 Essential (primary) hypertension (principal); E11.9 Type 2 diabetes mellitus without complications; E78.5 Hyperlipidemia, unspecified; E66.9 Obesity, unspecified; Z79.899 Other long term (current) drug therapy; Z88.8 Allergy status to other drugs, medicaments and biological substances; E55.9 Vitamin D deficiency, unspecified
CPT/HCPCS: G0463

== ENCOUNTER → 2023-12-07 | Outpatient (CLI) | payer OTHER | END | disposition home or self-care (01) | LOC: RADMN 14:58 | PROVIDERS: ATTEND Internal Medicine | DX: M76.891 Other specified enthesopathies of right lower limb, excluding foot (principal); M25.561 Pain in right knee | CPT/HCPCS: 73562-TC ==

== ENCOUNTER → 2024-12-04 | Outpatient (CLI) | payer OTHER ==
[~2024-12-04] VITALS: Ht 182.9 cm; Wt 108.0 kg
[~2024-12-04] MED LIST changes: +AMLO2.5T96 PO
[2024-12-04 10:15] VITALS: BP 150/99; PULSE 82; RESP 19; TEMP 98.9; O2SAT 97
== END | disposition home or self-care (01) ==
LOC: SRCNTR 09:55
PROVIDERS: ATTEND Internal Medicine
DX: I10 Essential (primary) hypertension (principal); E11.9 Type 2 diabetes mellitus without complications; E55.9 Vitamin D deficiency, unspecified; E66.9 Obesity, unspecified; E78.5 Hyperlipidemia, unspecified; F17.200 Nicotine dependence, unspecified, uncomplicated; J30.9 Allergic rhinitis, unspecified; N40.0 Benign prostatic hyperplasia without lower urinary tract symptoms; Z71.82 Exercise counseling; Z79.899 Other long term (current) drug therapy
CPT/HCPCS: G0463; Z7500

== ENCOUNTER → 2025-04-23 | Outpatient (CLI) | payer OTHER ==
[~2025-04-23] VITALS: Ht 182.9 cm; Wt 106.9 kg
[~2025-04-23] MED LIST changes: -CETI-450 PO; +CETI10TA77 PO
[2025-04-23 10:47] VITALS: BP 142/97; PULSE 95; RESP 17; TEMP 98.6; O2SAT 96
== END | disposition home or self-care (01) ==
LOC: SRCNTR 10:29
PROVIDERS: ATTEND Internal Medicine
DX: I10 Essential (primary) hypertension (principal); Z09 Encounter for follow-up examination after completed treatment for conditions other than malignant neoplasm; E11.9 Type 2 diabetes mellitus without complications; E55.9 Vitamin D deficiency, unspecified; E66.9 Obesity, unspecified; E78.5 Hyperlipidemia, unspecified; D22.9 Melanocytic nevi, unspecified; J30.9 Allergic rhinitis, unspecified; L91.8 Other hypertrophic disorders of the skin; M65.321 Trigger finger, right index finger; N40.0 Benign prostatic hyperplasia without lower urinary tract symptoms; M25.561 Pain in right knee; M54.2 Cervicalgia; F17.200 Nicotine dependence, unspecified, uncomplicated; Z71.82 Exercise counseling; Z79.899 Other long term (current) drug therapy
CPT/HCPCS: G0463; Z7500

== ENCOUNTER 2025-05-08 10:38 | Emergency (ER) | payer OTHER ==
[~2025-05-08] VITALS: Ht 182.9 cm; Wt 104.5 kg
[2025-05-08 11:11] VITALS: BP 119/74; PULSE 85; RESP 18; TEMP 97.7; O2SAT 97
[2025-05-08 12:00] LABS: PLATELET COUNT (AUTO) 177 K/uL (150-450); RED BLOOD CELL COUNT(AUTO) 5.30 MIL/uL (4.50-5.90); RED CELL DISTRIBUTION WIDTH 14.4 % (11.5-14.5); WHITE BLOOD COUNT (AUTO) 13.9 K/uL (4.5-11.0)
[2025-05-08 12:12] LABS: CALCIUM, TOTAL 9.0 mg/dL (8.8-10.5); CREATININE 0.87 mg/dL (0.60-1.30); GLOMERULAR FILTR. RATE CALC > 60 mL/min (>60); GLUCOSE,RANDOM 128 mg/dL (70-110); SODIUM SERUM 140 mmol/L (136-145); UREA NITROGEN, BLOOD 10 mg/dL (7-18)
[2025-05-08 12:20] LABS: TROPONIN I-HIGH SENSITIVITY 5 ng/L (<76)
[2025-05-08 12:41] LABS: RBC MORPHOLOGY COMMENT ABNORMAL RBC MORPH
[2025-05-08] MEDS ORDERED: SODIUM CHLORIDE 0.9% 100 ML ONE (13:23)
[2025-05-08] MEDS ORDERED: 0.9% SODIUM CHLORIDE 10 ML SYRINGE IVP ONE (13:23)
[2025-05-08] MEDS ORDERED: IOHEXOL 350 MG/ML 100 ML VIAL ONE (13:23)
[2025-05-08 13:26] LABS: ASPARTATE AMINOTRANSFERASE 16.0 U/L (15-37); TOTAL PROTEIN, SERUM 6.9 g/dL (6.4-8.2)
[2025-05-08] MEDS: ONDANSETRON HCL 4 MG/2 ML VIAL IVP ONE (13:51)
[2025-05-08] MEDS: ACETAMINOPHEN 500 MG TABLET PO ONE (13:51)
[2025-05-08] MEDS: KETOROLAC TROMETHAMINE 30 MG/ML VIAL IVP ONE (13:51)
[2025-05-08] MEDS: SODIUM CHLORIDE 0.9% 1,000 ML IV ONE (13:52)
[2025-05-08 14:33] LABS: APPEARANCE,URINE CLEAR (CLEAR); GLUCOSE, URINE (UA) NEGATIVE (NEGATIVE); LEUKOCYTE ESTERASE ,URINE TRACE (NEGATIVE); NITRATE,URINE NEGATIVE (NEGATIVE); OCCULT BLOOD,URINE NEGATIVE (NEGATIVE); SPECIFIC GRAVITIY, URINE 1.026 (1.003-1.030)
== END 2025-05-08 16:57 | disposition home or self-care (01) ==
LOC: EMS 10:39
DX: R10.30 Lower abdominal pain, unspecified (principal); R19.7 Diarrhea, unspecified; I10 Essential (primary) hypertension; E78.00 Pure hypercholesterolemia, unspecified; Z79.899 Other long term (current) drug therapy
CPT/HCPCS: 99285; 74177; 96374; 96375; 80048; 80076; 81001; 83690; 84484; 85025; 36415; 93005; J1885; Q9967; J2405; J7030; J7050

== ENCOUNTER → 2025-05-21 | Outpatient (CLI) | payer OTHER ==
[~2025-05-21] VITALS: Ht 182.9 cm; Wt 106.6 kg
[2025-05-21 10:09] VITALS: BP 143/98; PULSE 88; RESP 16; TEMP 98.2; O2SAT 95
== END | disposition home or self-care (01) ==
LOC: SRCNTR 09:59
PROVIDERS: ATTEND Internal Medicine
DX: I10 Essential (primary) hypertension (principal); J30.9 Allergic rhinitis, unspecified; D22.9 Melanocytic nevi, unspecified; E11.9 Type 2 diabetes mellitus without complications; E55.9 Vitamin D deficiency, unspecified; E66.9 Obesity, unspecified; E78.5 Hyperlipidemia, unspecified; F17.200 Nicotine dependence, unspecified, uncomplicated; K76.89 Other specified diseases of liver; L91.8 Other hypertrophic disorders of the skin; M65.321 Trigger finger, right index finger; N40.0 Benign prostatic hyperplasia without lower urinary tract symptoms; Z79.899 Other long term (current) drug therapy
CPT/HCPCS: G0463

== ENCOUNTER → 2025-05-23 | Outpatient (CLI) | payer OTHER ==
[2025-05-24 04:06] LABS: HEPATITIS B CORE IGM Negative (Negative); HEPATITIS C AB (EIA) Non Reactive (Non Reactive)
== END | disposition home or self-care (01) ==
LOC: LABMN 14:53
PROVIDERS: ATTEND Internal Medicine
DX: Z01.810 Encounter for preprocedural cardiovascular examination (principal)
CPT/HCPCS: 80074; 82378; 86301